=== PATIENT | male | born 1995 | race American Indian/Alaskan Native ===

== ENCOUNTER 2018-02-25 13:55 | Emergency (ER) | payer OTHER ==
[2018-02-25 14:07] VITALS: BP 110/65
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
[2018-02-25] MEDS ORDERED: TORADOL IM ONE (19:34)
== END 2018-02-25 19:45 | disposition home or self-care (01) ==
LOC: ED 13:55
DX: M54.5 Low back pain (principal); F17.200 Nicotine dependence, unspecified, uncomplicated; F12.90 Cannabis use, unspecified, uncomplicated; V49.19XA Passenger injured in collision with other motor vehicles in nontraffic accident, initial encounter; Y93.89 Activity, other specified; Y99.8 Other external cause status; Y92.488 Other paved roadways as the place of occurrence of the external cause
CPT/HCPCS: 72040; 72100; 72170; 96372; 99283; J1885